=== PATIENT | male | born 1965 | race Caucasian/White ===

== ENCOUNTER 2016-10-17 07:07 | Day surgery (SDC) | payer OTHER ==
[~2016-10-17] VITALS: Ht 175.3 cm; Wt 145.0 kg
[~2016-10-17 07:07] MED LIST: HYDR-3825 PO; HYDR-4003 PO; LISI-567 PO; Lactated Ringer's 1,000 ML IV ONE; RANI150C4 PO
[2016-10-17] MEDS ORDERED: Propofol 10,000 mCg/mL 20 mL Inj ONE ×2 (07:08)
--- NOTE | 2016-10-17 07:30 | PCM.HPANE ---
Patient Data Surgeon Admitting Provider: Attending Provider:Jerrell Hou MD Primary Care Physician:Shasta Bailey MD Other Provider:Ann Marie Barrettingham Anesthesia Reason for Visit Screening, Gerd Ht/WT & BMI Body Mass Index Allergies Coded Allergies: No Known Allergies (Verified Allergy, Unknown, 10/16/16) Medications Reported Medications Ranitidine 150 Mg [id number] Mg PO DAILY Ref 0 10/16/16 Lisinopril 20 Mg [id number] Mg PO DAILY 30 Days Ref 0 10/16/16 Discontinued Reported Medications Hydrocodone-Acetaminophen 5-325 mg 1 Each Tablet1 Tablet PO Q4H PRN For Pain Ref 0 10/16/16 Hydrocodone-Acetaminophen 7.5-325 mg 1 Each Tablet1 Tablet PO Q4H PRN For Pain Ref 0 10/16/16 Stop/Bang Risk Assessment Category Category 1A: Patient has history of documented sleep apnea, and HAS NOT received any narcotic, sedative or anesthesia administration during this stay. Category 1B: Patient has history of documented sleep apnea, and HAS received any narcotic , sedative or anesthesia administration during this stay Category 2: Patient has SUSPECTED Obstructive Sleep Apnea, and HAS received any narcotic , sedative or anesthesia administration during this stay. Category 3: Patient has SUSPECTED Obstructive Sleep Apnea and HAS NOT received narcotic, sedative or anesthesia administration during this stay. Category 4: Outpatient in Procedural Areas with known sleep apnea or who screen positive for High Risk via the STOP/BANG questionnaire. Exam Exam General Appearance: Alert, Oriented X3, Cooperative, No Acute Distress HEENT/AIRWAY: MP 1 Lungs: Normal Air Movement Heart: Regular Rate/Rhythm Plan Impression Patient chart reviewed, patient interviewed and anesthestic plan with risks, benefits, and alternatives discussed, and informed consent obtained. ASA Physical Status: ASA3 Severe Disease Anesthetic Plan: MAC Bene/Risks/Altern/Consents: Yes HP Complete Prior to Induction: Yes Karyn Barrera DO Oct 17, 2016 07:30
[2016-10-17 07:33] VITALS: BP 145/93; PULSE 77; RESP 16; O2SAT 98
[2016-10-17 08:30] VITALS: BP 158/80; PULSE 76; RESP 16; O2SAT 93
--- NOTE | 2016-10-17 08:37 | PCM.ANEP1 ---
Post Anesthesia Phase 1 PACU Phase 1 Assessment Vital Signs Vital Signs Date Time Temp Pulse Resp B/P Pulse Ox O2 Delivery O2 Flow Rate FiO2 10/17/16 08:30 76 16 158/80 93 Room Air 10/17/16 07:33 36.4 77 16 145/93 98 Room Air Anesthetic Administered: MAC Level of Alertness: Awake, talking SHARIF's with Equal Strength: Yes Pain: No Nausea or Vomiting: No Oxygen Delivery: Room Air Lungs: Normal Air Movement Karyn Barrera DO Oct 17, 2016 08:37
--- NOTE | 2016-10-17 08:37 | PCM.ANEP2 ---
Post Anesthesia Evaluation ASA/CMS Post Anesthesia VS in Patient's Normal Range?: Yes Resp Stable; Airway Patent?: Yes CV Function & Hydration Stable: Yes Mental Status Recovered?: Yes Pain control Satisfactory?: Yes N/V Control Satisfactory?: Yes Karyn Barrera DO Oct 17, 2016 08:37
[2016-10-17 08:47] VITALS: BP 184/85; PULSE 86; RESP 16; O2SAT 96
[2016-10-17 08:54] VITALS: BP 147/80; PULSE 76; RESP 16; O2SAT 96
--- NOTE | 2016-10-17 09:00 | ENDO ---
[address] [address] ENDOSCOPY PROCEDURE PATIENT: EFREN ESPAÑA : 1965 MR#: [id number] ADMIT: 10/17/2016 JOB ID: [id number] DATE OF SERVICE: 10/17/2016 PRIMARY PROVIDER: Shasta Bailey MD. PROCEDURE: 1. Esophagogastroduodenoscopy with biopsies. 2. Colonoscopy. INDICATIONS: A 51-year-old male with chronic reflux who reports for Bone screening. He also reports for colon cancer screening. EQUIPMENT: PCF-H180AL and a GIF-H180J. SEDATION: Monitored anesthesia, as provided by Dr. Karyn Barrera. COMPLICATIONS: None identified. BOWEL PREPARATION: Fair at best. PROCEDURE INFORMATION: After the risks and benefits were explained, written and verbal informed consent was obtained. The patient was brought into the endoscopy suite and placed into the left lateral decubitus position. Sedation was achieved using the above-stated medications with the addition of oxygen via nasal cannula. The scope was introduced into the mouth through the bite block, and advanced under direct visualization through the oropharynx, esophagus, stomach, and onto the second portion of the duodenum. The scope was slowly withdrawn to carefully examine the mucosa for any defects or lesions. Retroflexed views were accomplished in the stomach. The stomach was decompressed. The scope removed from the patient who tolerated the procedure well. The patient was then turned around. A digital rectal examination accomplished. No significant pathology appreciated. The scope was introduced into the rectum and advanced under direct visualization to the level of the cecum, as identified by the appendiceal orifice and ileocecal valve. The scope was slowly withdrawn to carefully examine the mucosa for any defects or lesions. Multiple direct views were made through the dentate line for exclusion of pathology. The colon was decompressed. The scope removed from the patient who tolerated the procedure well. FINDINGS: 1. Duodenum: No pathology identified from the bulb through to the second portion. 2. Stomach: The patient had a minimal diffuse gastropathy. No ulcers. No mass lesions. No outlet obstruction. Retroflexed views of the LES were unremarkable. Random biopsy was taken for exclusion of helicobacter or other pathology. 3. Esophagus: The squamocolumnar junction correlated with the top of the gastric folds. The GEJ was at 44 cm from the incisors. There was evidence of a very subtle sliding hiatal hernia and very subtle LA grade A erosive esophagitis. In the 10 o'clock location there was an island of possible Bone's just proximal to the GE junction. This was targeted for biopsy. Otherwise, the squamocolumnar junction generally correlated with the top of the gastric folds. No other pathology in the esophagus. 4. Colon: Slightly suboptimal prep with a film of mustard-colored stool all throughout the bowel requiring heavy irrigation and suction. Within the limitations of bowel prep, I did not see any significant colonic pathology. ENDOSCOPIC DIAGNOSES: 1. Subtle sliding hiatal hernia. 2. Subtle esophagitis. 3. Possible island of Bone's. 4. Visually unremarkable colonoscopy to cecum. RECOMMENDATIONS: 1. Await histopathology. 2. Continue antireflux regimen. 3. If Bone's is identified, then repeat EGD in 9-12 months with anesthesia. 4. Repeat colonoscopy in no later than five years considering the slightly suboptimal bowel prep here today.
--- NOTE | 2016-10-18 14:26 | PATH ---
SURGICAL PATHOLOGY Attending Physician:Shari Smith CASE STATUS: Signed Out PATIENT NAME: EFREN ESPAÑA PID: [id number] : 1965 DATE COLLECTED:10/17/2016 15:50 SPECIMEN: 1: Gastric, Biopsy 2: Esophagus, Biopsy CLINICAL HISTORY: 1). GASTRIC BIOPSY 2). GEJ BIOPSY FINAL DIAGNOSIS: 1. Gastric Biopsy: Superficial mucosal hyperemia without associated significant inflammation involving fundic mucosa. Negative for evidence of Helicobacter. Negative for intestinal metaplasia. Negative for dysplasia and malignancy. 2. Distal Esophagus Biopsy: Fragment of squamous mucosa and gastric cardia-type mucosa negative for specialized metaplasia of Bone's type esophagus. Negative for dysplasia and malignancy. Eosinophils are not increased. ICD10: R13.10 GROSS DESCRIPTION: The specimen is received in two formalin filled containers labeled with the patient's name. 1). The specimen sublabeled "gastric" and consists of a 0.3 x 0.3 x 0.2 CM portion of tissue which is entirely submitted in cassette 1A. 2). The specimen is sublabeled " GEJ " and consists of a 0.2 x 0.2 x 0.1 CM portion of tissue which is entirely submitted in cassette 2A. 10/17/2016 [facility] ICD-9 CODES: CPT CODES: 1: 99379 2: 59920 Electronically Signed Out Jerrell Ortega MD [facility] Pathology [facility] [address] [facility] [place] [address] Technical component performed at [facility], [address] [place] [address] Ave[address], [address]
== END 2016-10-17 23:59 | disposition home or self-care (01) ==
LOC: END 23:59
PROVIDERS: ATTEND Internal Medicine Gastroenterology
DX: Z12.11 Encounter for screening for malignant neoplasm of colon (principal); R13.10 Dysphagia, unspecified; K44.9 Diaphragmatic hernia without obstruction or gangrene; K21.0 Gastro-esophageal reflux disease with esophagitis; I10 Essential (primary) hypertension; Z79.899 Other long term (current) drug therapy